=== PATIENT | female | born 1990 ===

== ENCOUNTER 2021-11-15 18:30 | Outpatient (CLI) | payer MEDICAID, MEDICARE ==
[2021-11-15 20:10] LABS: GLUCOMETER DEV NAME(LOC) POC.BV
[2021-11-15] MEDS ORDERED: HydrOXYzine PAMOATE 25 MG CAPSULE PO PRN (20:45)
[2021-11-15 20:48] VITALS: BP 100/68
[2021-11-15 20:50] VITALS: BP 100/68
[2021-11-15] MEDS ORDERED: TraZODone HCL 50 MG TABLET PO SCH (21:00)
[2021-11-16 08:17] VITALS: BP 115/67
[2021-11-16] MEDS ORDERED: ESCITALOPRAM OXALATE 10 MG TABLET PO SCH (09:00)
== END 2021-11-16 10:30 | disposition home or self-care (01) ==
LOC: CSU 18:30
PROVIDERS: ATTEND Psychiatry & Neurology Psychiatry
DX: F33.9 Major depressive disorder, recurrent, unspecified (principal); Z20.822 Contact with and (suspected) exposure to COVID-19
CPT/HCPCS: 90792; Z7610